=== PATIENT | female | born 1950 | race Caucasian/White ===

== ENCOUNTER → 2017-01-02 | Outpatient (CLI) | payer MEDICARE, OTHER ==
--- NOTE | 2017-01-02 12:00 | CT ---
EXAMINATION TYPE: CT lumbar spine wo con DATE OF EXAM: 01/02/2017 COMPARISON: NONE HISTORY: pain with bilateral sciatica CT DLP: 604.1 mGycm CONTRAST: None TECHNIQUE: CT of the lumbar spine is performed on a spiral scan at 3 mm thick sections. Reconstructed images are performed in the coronal and sagittal planes. FINDINGS: Vascular calcification is within the aorta. Renal calcifications noted on the left. T12-L1: No focal disc herniation or significant disc bulge is evident. No spinal canal stenosis or neural foraminal stenosis is present. L1-L2: No focal disc herniation or significant disc bulge is evident. No spinal canal stenosis or n eural foraminal stenosis is present L2-L3: No focal disc herniation or significant disc bulge is evident. No spinal canal stenosis or n eural foraminal stenosis is present L3-L4: Mild disc bulging is anterior thecal sac contact. No spinal canal stenosis or neural foraminal stenosis is present. L4-L5: Mild disc bulging is anterior thecal sac contact. Mild facet hypertrophy is present. No AP spi nal canal stenosis present. Neural foramen are patent. L5-S1: Mild disc bulge and facet hypertrophy is contributing to mild canal narrowing. No stenosis is present. Neural foramen are patent. Vertebral alignment appears normal. IMPRESSION: 1. Minimal disc bulge at L3-4 through L5-S1 with anterior thecal sac contact. 2. Facet hypertrophy greatest at L5-S1. This may be contributing to minimal canal narrowing without s tenosis at L5-S1.
== END | disposition home or self-care (01) ==
LOC: RADCTMAIN 09:08
PROVIDERS: ATTEND Family Medicine
DX: M51.17 Intervertebral disc disorders with radiculopathy, lumbosacral region (principal); M46.1 Sacroiliitis, not elsewhere classified
CPT/HCPCS: 72131

== ENCOUNTER → 2017-01-21 | Outpatient (CLI) | payer MEDICARE, OTHER ==
[~2017-01-21] MED LIST: REGADENOSON 0.4 MG/5 ML SYRINGE IV ONE
--- NOTE | 2017-01-21 11:44 | NM ---
EXAMINATION TYPE: NM stress lexiscan cardiolite DATE OF EXAM: 01/21/2017 COMPARISON: 11/24/2014 HISTORY: Abnormal EKG TECHNIQUE: After the intravenous administration of 10.7 mCi Tc 99m Sestamibi - Cardiolite resting SP ECT images acquired 45 minutes post injection. The patient received 0.4mg Lexiscan, 27.2 mCi Tc 99m Sestamibi - Stress images obtained [address] injection FINDINGS: Review of stress and rest SPECT images demonstrates tiny suspicious for small area of reversibility i nvolving the apical lateral myocardium.. Gated analysis shows normal wall motion with an estimated l eft ventricular ejection fraction of 68 %. IMPRESSION: Suspicious for small focal area of stress-induced reversible ischemia apical lateral myocardium. A Yellow message has been communicated to Jamar Dao DO via the [employer] system on 01/21/2017 11:42 AM, Message ID [id number].
--- NOTE | 2017-01-21 12:43 | EST ---
DATE OF SERVICE: 01/21/2017 AGE: 66Y SEX: F HT: 61" WT: 174 lbs. Protocol Neto: Other: Lexiscan Cardiolite Stage: Dur. of Exercise: *Heart Rate Blood Pressure *Rest: 68 Rest: 147/76 * *Max. Achieved: 104 Maximum BP: 163/64 85% PMHR: 130 100% PMHR: 153 *METS: INDICATIONS: Pre-op, abnormal EKG. MEDICATIONS: Crestor, Plavix, verapamil. Patient was given Lexiscan injection over a period of 15 seconds. The peak heart rate of 104 was achieved. Maximum blood pressure of 163/64 mmHg was noted. Resting EKG shows normal sinus rhythm with QRS morphology suggestive of right bundle branch block pattern was noted. No ST segment depression suggestive of ischemia is noted. The results of the nuclear study will follow.
== END | disposition home or self-care (01) ==
LOC: RADNMMAIN 08:56
PROVIDERS: ATTEND Family Medicine
DX: Z01.818 Encounter for other preprocedural examination (principal); I25.10 Atherosclerotic heart disease of native coronary artery without angina pectoris; I10 Essential (primary) hypertension
CPT/HCPCS: 93017; 78452; A9500; J2785

== ENCOUNTER → 2018-04-18 | Outpatient (CLI) | payer MEDICARE, OTHER ==
--- NOTE | 2018-04-18 15:49 | US ---
EXAMINATION TYPE: US carotid duplex BILAT DATE OF EXAM: 04/18/2018 COMPARISON: US 2013 CLINICAL HISTORY: [id number] PERIPHERRAL VASCULAR DZ,[id number] NICOTINE DEPENDANCE. EXAM MEASUREMENTS: RIGHT: Peak Systolic Velocity (PSV) cm/sec ----- Right CCA: 64.5 ----- Right ICA: 106.4 ----- Right ECA: 78.2 ICA/CCA ratio: 1.7 RIGHT: End Diastole cm/sec ----- Right CCA: 18.1 ----- Right ICA: 33.5 ----- Right ECA: 14.3 LEFT: Peak Systolic Velocity (PSV) cm/sec ----- Left CCA: 71.8 ----- Left ICA: 81.0 ----- Left ECA: 91.9 ICA/CCA ratio: 1.1 LEFT: End Diastole cm/sec ----- Left CCA: 21.0 ----- Left ICA: 32.7 ----- Left ECA: 21.1 VERTEBRALS (direction of flow): Right Vertebral: Antegrade Left Vertebral: Antegrade Rhythm: Normal Bilateral intimal thickening, plaque bilateral bulb, no elevated velocities, no significant stenosis. IMPRESSION: Atheromatous plaquing and intimal thickening without significant flow-limiting stenosis. Criteria for Assigning % of Stenosis / Diameter reduction (Estimation based on the indirect measurements of the internal carotid artery velocities (ICA PSV). 1. Normal (no stenosis)=ICA PSV < 125 cm/s: ratio < 2.0: ICA EDV<40 cm/s. 2. Less than 50% stenosis=ICA PSV < 125 cm/s: ratio < 2.0: ICA EDV<40 cm/s. 3. 50 to 69% stenosis=ICA PSV of 125 to 230 cm/s: ration 2.0 ? 4.0: ICA EDV 40-100 cm/s. 4. Greater than 70% stenosis to near occlusion= ICA PSV > 230 cm/s: ratio > 4.0: ICA EDV > 100 cm/s. 5. Near occlusion= ICA PSV velocities may be low or undetectable: variable ratio and ICA EDV. 6. Total occlusion=unable to detect flow.
--- NOTE | 2018-04-22 09:39 | P.ARTDOP ---
Arterial Doppler LOWER EXTREMITY ARTERIAL DOPPLER: DATE OF SERVICE: 04/18/2018 Reason for study: Status post aortic stent. Doppler waveforms: Multiphasic bilaterally throughout. Pulse volume recording: Normal configuration. Pressure gradients: Very mild proximal gradients. Ankle-brachial indices: 0.96 on the right and 0.99 on the left.. Toe pressures: 99 on the right, 122 on the left Impression: Essentially normal arterial Doppler.
== END | disposition home or self-care (01) ==
LOC: RADUSWWP 13:03
PROVIDERS: ATTEND Family Medicine
DX: I65.23 Occlusion and stenosis of bilateral carotid arteries (principal); I25.10 Atherosclerotic heart disease of native coronary artery without angina pectoris; I10 Essential (primary) hypertension; F17.200 Nicotine dependence, unspecified, uncomplicated
CPT/HCPCS: 93880; 93923

== ENCOUNTER → 2018-05-28 | Outpatient (CLI) | payer MEDICARE, OTHER ==
--- NOTE | 2018-05-28 16:53 | BD ---
EXAMINATION TYPE: Axial Bone Density DATE OF EXAM: 05/28/2018 COMPARISON: 2007 CLINICAL HISTORY: disorder of bone, M 85.80 Height: 5'1 Weight: 173 FRAX RISK QUESTIONS: Secondary Osteoporosis: RISK FACTORS HISTORY OF: Family History of Osteoporosis: y Diet low in dairy products/other sources of calcium: y Postmenopausal woman: y MEDICATIONS: Additional Medications: plavix,crestor, blood pressure, stomach, flexa Additional History: EXAM MEASUREMENTS: Bone mineral densitometry was performed using the [employer] System. Bone mineral density as measured about the Lumbar spine is: ----- L1-L4(G/cm2): 1.089 T Score Values are as follows: ----- L2: -0.6 ----- L3: -0.3 ----- L4: -1.6 ----- L1-L4: -0.8 Bone mineral density about the R hip (g/cm2): 0.753 Bone mineral density about the L hip (g/cm2): 0.812 T Score values are as follows: -----R Neck: -2.1 -----L Neck: -1.6 -----R Total: -0.8 -----L Total: -0.8 IMPRESSION: Osteopenia (T Score between -2.5 and -1). There is slightly increased risk of fracture and the patient may be considered for treatment. Re-Screen 2-5 years. NOTE: T-SCORE=SD OF THE YOUNG ADULT MEAN.
--- NOTE | 2018-05-29 13:29 | MM ---
Reason for exam: screening (asymptomatic). Last mammogram was performed 1 year ago. History: Patient is postmenopausal. Family history of breast cancer in maternal cousin. Benign excisional biopsy of the left breast, 1989. Took estrogen for 21 years. Physical Findings: A clinical breast exam by your physician is recommended on an annual basis and results should be correlated with mammographic findings. MG 3D Screening Mammo W/Cad Bilateral CC and MLO view(s) were taken. Prior study comparison: May 27, 2017, bilateral MG 3d screening mammo w/cad. May 14, 2016, bilateral MG 3d screening mammo w/cad. There are scattered fibroglandular densities. There is no discrete abnormality. No significant changes when compared with prior studies. ASSESSMENT: Negative, BI-RAD 1 RECOMMENDATION: Routine screening mammogram of both breasts in 1 year.
== END | disposition home or self-care (01) ==
LOC: RADMAMWWP 13:48
PROVIDERS: ATTEND Family Medicine
DX: Z12.31 Encounter for screening mammogram for malignant neoplasm of breast (principal); M85.80 Other specified disorders of bone density and structure, unspecified site
CPT/HCPCS: 77063; 77067; 77080

== ENCOUNTER → 2018-12-10 | Outpatient (CLI) | payer MEDICARE, OTHER ==
--- NOTE | 2018-12-10 13:07 | CONS ---
CONSULTATION DATE OF SERVICE: 12/10/2018 A 68-year-old lady who has been in the sleep center for obstructive sleep apnea- hypopnea syndrome. HISTORY OF PRESENT ILLNESS/SLEEP-WAKE EVALUATION: Patient has been diagnosed with sleep apnea about 5 years ago by results of home sleep apnea test. Since that time she is on treatment with CPAP. Now she is using her second CPAP unit. She is using equipment every night for the whole night and 96% more than 4 hours per night. Her sleep schedule from around 10 p.m. to 7 a.m. Usually she is falling asleep pretty well, although has TV set in bedroom. She sleeps on the side position. While using her CPAP, according to her , she has episodes of awakenings from sleep and noises opening her mouth. Sometimes he wakes her up because of his concerns about her breathing. She wakes from sleep by herself around 5 to 6 times with occasional episodes of nocturia. [place] Sleepiness Scale is 3. Usually she does not take any naps during the day. PAST MEDICAL HISTORY: Positive for hypertension, abdominal aortic narrowing with stent insertion, hyperlipidemia, acid reflux with history of Moise esophagus. PAST SURGICAL HISTORY: Insertion of stent to aorta, tonsillectomy, uvulectomy, cholecystectomy, bilateral knee surgery for meniscus problems. SOCIAL HISTORY: Positive for smoking for about 10 years, less than 1 pack a day. Alcohol consumption none. MEDICATIONS: Crestor, Plavix, verapamil ER, Prevacid, Celexa, vitamin D. FAMILY HISTORY: Hypertension, heart problems, hyperlipidemia, sleep apnea, snoring, acid reflux, diabetes, nasal polyps, restless legs. PHYSICAL EXAMINATION: During physical exam, a lady without distress. VITAL SIGNS: BP 143/69, HR 82, RR 16, height 5 feet 1-1/2 inches, weight 178 pounds, body mass index 33.0, temperature 97.9, oxygen saturation at room air 96%. HEENT: PERRLA, EOMI. Oropharynx extremely low position of soft palate. Mallampati 4. Status post uvulectomy. Restriction of nasal breathing on the left side. NECK: 15-3/4 inches in circumference. LUNGS: Clear to percussion and to auscultation. Good air exchange. No wheezing or rhonchi. HEART: S1, S2 regular. No murmurs, gallops, or rubs. ABDOMEN: Obese. EXTREMITIES: No clubbing or cyanosis. PLANT AND EQUIPMENT WORKER: Awake, alert, and oriented X3. Cranial nerves 2 to 7 intact. There is no fasciculation or atrophy. noted. No focal deficits observed. IMPRESSION: 1. History of obstructive sleep apnea for 5 years. The patient continued to use her CPAP equipment every night for the whole night, but has multiple awakenings from sleep up to 6 times. According to her , she has episodes of stopped breathing during the sleep and noises. 2. Obesity, body mass index 33.0. 3. Hypertension. 4. Status post surgical treatment of stent insertion to abdominal aorta. 5. Hyperlipidemia. 6. Acid reflux with history of Moise esophagus. 7. Status post tonsillectomy and uvulectomy. 8. Status post cholecystectomy. 9. Status post bilateral knee surgery for meniscus problems. PLAN: 1. I will contact primary care physician office to get results of her previous home sleep apnea test which was done 5 years ago. 2. If results of test are unclear, we may consider to repeat polysomnogram. Also to check for possible periodic limb movements. 3. CPAP titration for evaluation of effective CPAP pressure at the present time and fitting patient with a mask. 4. Losing weight. 5. Sleep hygiene with regular time in bed for at least 7-1/2 hours. 6. No driving if feeling any sleepiness. Thank you very much for referring this patient for consultation. Sincerely, Bill Braga MD, PhD, FAASM Diplomat of [place] Board of Medical Specialties [place] Board of Internal Medicine Dental Equipment Mechanic of [facility] [place] MMODL / RUCHIN: [id number] /
== END ==
LOC: SLEEP 11:38
PROVIDERS: ATTEND Internal Medicine
DX: G47.33 Obstructive sleep apnea (adult) (pediatric) (principal); I10 Essential (primary) hypertension; E78.5 Hyperlipidemia, unspecified; K21.9 Gastro-esophageal reflux disease without esophagitis; K22.70 Barrett's esophagus without dysplasia; E66.9 Obesity, unspecified; Z90.49 Acquired absence of other specified parts of digestive tract; Z87.891 Personal history of nicotine dependence; Z79.899 Other long term (current) drug therapy; Z79.02 Long term (current) use of antithrombotics/antiplatelets; Z83.6 Family history of other diseases of the respiratory system; Z95.828 Presence of other vascular implants and grafts; Z68.33 Body mass index [BMI] 33.0-33.9, adult; Z99.89 Dependence on other enabling machines and devices; Z90.89 Acquired absence of other organs; Z98.890 Other specified postprocedural states
CPT/HCPCS: 99211

== ENCOUNTER → 2019-01-22 | Outpatient (CLI) | payer MEDICARE, OTHER ==
--- NOTE | 2019-01-22 16:20 | PN ---
PROGRESS NOTE DATE OF SERVICE: 01/22/2019 This patient is a 68-year-old lady who has been followed in Sleep Center for treatment of obstructive sleep apnea-hypopnea syndrome. Recently she had CPAP titration; for the whole night of titration her apnea-hypopnea index was only 0.5, with the highest pressure of 10. At that level, apnea-hypopnea index was 1.0 with oxygen level above 88%, which is totally normal. Actually with lower pressure, the patient also breathes well. The patient is using her CPAP equipment every night for the whole night. I checked her CPAP unit. Usage is 30/30 nights for more than 4 hours. Average usage is 7.6 hours. Pressure is 10 cm of water. Leak is 5 L/minute, which is very minimal. Apnea-hypopnea index is 2.6, which is absolutely normal. The patient does not have problems related to the pressure. [place] Sleepiness Scale today is 4, which is absolutely normal. MEDICATIONS: 1. Crestor. 2. Plavix. 3. Verapamil. 4. Prevacid. 5. Vitamin D. PHYSICAL EXAMINATION: GENERAL: A pleasant patient in no distress. VITAL SIGNS: BP 150/74, HR 76, RR 14, weight 179.8, temperature 98.3, oxygen saturation at room air 95%. HEENT: PERRLA, EOMI. Evaluation of oropharynx showed tongue protrudes midline. Extremely low position of soft palate. Mallampati IV. NECK: Supple. No JVD. Thyroid is not palpable. LUNGS: Clear to percussion and to auscultation. Good air exchange. No wheezing or rhonchi. HEART: S1, S2 regular. No murmurs, gallops or rubs. ABDOMEN: Slightly obese. EXTREMITIES: No clubbing or cyanosis. PROFESSOR/NURSE ANESTHETIST: Awake, alert, and oriented X3. Cranial nerves 2 to 7 intact. There is no fasciculation or atrophy. noted. No focal deficits observed. IMPRESSION: 1. Obstructive sleep apnea-hypopnea syndrome. Patient demonstrated 100% compliance with treatment, benefitting from treatment. 2. Hypertension. 3. Obesity. 4. Hyperlipidemia. 5. Status post surgical treatment and stent insertion to abdominal aorta. 6. Acid reflux with history of Moise's esophagus. 7. Status post tonsillectomy and uvulectomy. 8. Status post cholecystectomy. 9. Status post bilateral knee surgery for meniscus problems. PLAN: 1. Patient will continue to use CPAP equipment with the same regimen every night for the whole night. 2. Watching and losing weight. 3. Sleep hygiene with regular time in bed for at least 8 hours. 4. No driving if feeling any sleepiness. 5. We will maintain all necessary prescriptions for the mask, heated tube and filters. Thank you very much for allowing me to participate in the management of your patient. Sincerely, Bill Braga MD, PhD, FAASM Diplomat of [place] [employer] Specialties [place] [employer] of [employer] Medicine Hosiery Operator of [facility] [place] MMODL / IJN: [id number] /
== END | disposition home or self-care (01) ==
LOC: SLEEP 13:09
PROVIDERS: ATTEND Internal Medicine
DX: G47.33 Obstructive sleep apnea (adult) (pediatric) (principal); I10 Essential (primary) hypertension; E78.5 Hyperlipidemia, unspecified; K21.9 Gastro-esophageal reflux disease without esophagitis; E66.9 Obesity, unspecified; K22.70 Barrett's esophagus without dysplasia; Z98.890 Other specified postprocedural states; Z90.49 Acquired absence of other specified parts of digestive tract; Z79.899 Other long term (current) drug therapy; Z99.89 Dependence on other enabling machines and devices; Z90.89 Acquired absence of other organs; Z95.5 Presence of coronary angioplasty implant and graft; Z79.02 Long term (current) use of antithrombotics/antiplatelets

== ENCOUNTER → 2020-02-16 | Outpatient (CLI) | payer MEDICARE, OTHER ==
--- NOTE | 2020-02-17 11:21 | MM ---
Reason for exam: screening (asymptomatic). Last mammogram was performed 1 year and 9 months ago. History: Patient is postmenopausal. Family history of breast cancer in maternal cousin. Benign excisional biopsy of the left breast, 1989. Took estrogen for 21 years. Physical Findings: A clinical breast exam by your physician is recommended on an annual basis and results should be correlated with mammographic findings. MG 3D Screening Mammo W/Cad Bilateral CC and MLO view(s) were taken. Prior study comparison: May 28, 2018, bilateral MG 3d screening mammo w/cad. May 27, 2017, bilateral MG 3d screening mammo w/cad. There are scattered fibroglandular densities. Stable benign calcifications. There is no discrete abnormality. No significant changes when compared with prior studies. ASSESSMENT: Benign, BI-RAD 2 RECOMMENDATION: Routine screening mammogram of both breasts in 1 year.
== END | disposition home or self-care (01) ==
LOC: RADMAMWWP 11:15
PROVIDERS: ATTEND Family Medicine
DX: Z12.31 Encounter for screening mammogram for malignant neoplasm of breast (principal)
CPT/HCPCS: 77063; 77067

== ENCOUNTER → 2020-05-31 | Outpatient (CLI) | payer MEDICARE, OTHER ==
--- NOTE | 2020-05-31 09:26 | XR ---
Left foot and left ankle Limited HISTORY: Pain, broken toe 3 weeks prior Frontal and lateral views of the left foot and left ankle are submitted. No comparisons. There is a plantar calcaneal spur. Bone mineralization, joint spaces and alignment are maintained wit hin the left ankle. There is an oblique fracture through the proximal phalanx of the fifth digit of t he left foot with minimal displacement. No evident periosteal new bone formation. Bone mineralization is reduced. There is a sclerotic focus in the proximal second metatarsal which may represent bone is land. IMPRESSION: Fifth digit fracture. Additional findings above.
== END | disposition home or self-care (01) ==
LOC: RADXRYALE 08:47
PROVIDERS: ATTEND Family Medicine
DX: S92.352A Displaced fracture of fifth metatarsal bone, left foot, initial encounter for closed fracture (principal); M77.32 Calcaneal spur, left foot; S92.515D Nondisplaced fracture of proximal phalanx of left lesser toe(s), subsequent encounter for fracture with routine healing; M25.572 Pain in left ankle and joints of left foot

== ENCOUNTER 2020-10-12 08:31 | Day surgery (SDC) | payer MEDICARE, OTHER ==
[2020-10-06 12:01] VITALS: BMI 29.8
[~2020-10-12 08:31] MED LIST changes: +LACTATED RINGERS 1,000 ML IV SCH; +LIDOCAINE 1% (10MG/ML) FOR IV START INTRADERMA PRN; +MOXIFLOXACIN HCL 0.5% DROPS 3 ML BTL OP PRN; -REGADENOSON 0.4 MG/5 ML SYRINGE IV ONE; +TETRACAINE 0.5% OPHTH (PF) DROPS 4 ML BTL OP PRN; +TIMOLOL 0.5% OPHTH DROPS 5 ML BTL OP PRN
[2020-10-12] MEDS: CYCLOPENTOLATE 1% OPHTH SOLN 2 ML BTL OP PRN ×3 (08:49→09:06)
[2020-10-12] MEDS: PHENYLEPHRINE 2.5% OPHTH DRP 2ML OP PRN ×3 (08:51→09:11)
[2020-10-12 09:01] VITALS: TEMP 97.8
[2020-10-12 09:21] LABS: Glucose,Whole Blood 114 mg/dL (75-99)
[2020-10-12] MEDS ORDERED: MIDAZOLAM 2 MG/2 ML VIAL ONE (09:23)
[2020-10-12] MEDS ORDERED: fentaNYL (PF) 50 MCG/ML 2 ML AMP ONE (09:23)
[2020-10-12] MEDS ORDERED: BALANCED SALT IRRIG SOLN COMB2 15 ML IRRIG.SOLN IRRIGATION ONE (09:34)
[2020-10-12] MEDS ORDERED: LIDOCAINE 1% (PF) 10MG/ML VIAL MISCELLANE ONE (09:34)
[2020-10-12] MEDS ORDERED: DUOVISC KIT (GREEN BOX) INTRAOCULA ONE (09:34)
[2020-10-12] MEDS ORDERED: EPINEPHrine (PF) 0.3 ML in BALANCED SALT IRRIG SOLN COMB2 500 ML IRRIGATION ONE (09:35)
--- NOTE | 2020-10-12 09:52 | P.OP ---
Date of Procedure: 10/12/20 Preoperative Diagnosis: NS & CS Postoperative Diagnosis: same with astigmatism Procedure(s) Performed: PIOL< OS Implants: [id number] 20 x 5 Anesthesia: MAC Surgeon: Cristo Mendoza Pathology: none sent Condition: stable Disposition: same day Indications for Procedure: blurry vision Operative Findings: no complications
[2020-10-12 10:03] VITALS: PULSE 67; RESP 16
[2020-10-12 10:11] VITALS: BP 130/62
--- NOTE | 2020-10-12 22:04 | OP ---
OPERATIVE REPORT DATE OF SURGERY: 10/12/2020. PROCEDURE: Phacoemulsification of cataract and intraocular lens implant of the left eye. PREOPERATIVE DIAGNOSIS: Nuclear sclerosis, cortical sclerosis and regular astigmatism. POSTOPERATIVE DIAGNOSIS: Nuclear sclerosis, cortical sclerosis and regular astigmatism. SURGEON: Dr. Cristo Mendoza. ANESTHESIA: Topical. ESTIMATED BLOOD LOSS: None. SPECIMEN TAKEN: None. NARRATIVE: After obtaining the appropriate consent, the patient was brought to the operating room. There she was asked to sit upright and the axes of 0 and 180 degrees were identified and marked with a gentian ken marker. She was then placed in the proper supine position under cardiac monitoring, then prepped and draped in the usual sterile manner. She was approached from her left temporal side, and using previously acquired corneal topography information, the axis of 83 degrees was identified and marked with a real trends axis marker. At the 5 o'clock position an MVR blade was used to create a paracentesis port. Through this opening 1% xylocaine MPF 50:50 mix of balanced salt solution was injected into the anterior chamber. This was followed by stabilization of the anterior chamber with Viscoat. At the 3 o'clock position, a 2.5 mm keratome was used to create a self-sealing corneal flap incision. Through this opening a cystotome was introduced to begin a continuous tear capsulorrhexis which was then completed using the Utrata forceps. Hydrodissection and hydrodelineation of the lens was accomplished with balanced salt solution. Phacoemulsification of the lens utilizing phaco chop was accomplished in 22.08 seconds at 21% power. Additional xylocaine MPF was instilled into the anterior chamber. This was followed by removal of the remaining cortex under irrigation and aspiration as well as careful polishing of the posterior capsule in the capsule vacuum mode. Provisc was then used to stabilize the capsular bag, and a Bausch and Lomb enVista model MX60T 20 diopter spherical equivalent by 5 diopter cylinder correction lens was inserted into the capsular bag without difficulty. The remaining viscoelastic was removed from in and around the intraocular lens, and the lens was then aligned with the 83-degree ashleigh which was placed on the patient's cornea. The lens was slightly tamponaded to ensure stability and the eye was then brought to normal intraocular pressures through the paracentesis port. The wounds were confirmed watertight. She then received 2 drops of 0.5% timolol followed by 2 drops of moxifloxacin, was then lightly patched and shielded in the usual manner. There were no complications from the procedure. She tolerated the procedure well and was returned to [facility] in good condition. LAW / JOSEFINA: [id number] /
== END 2020-10-12 10:40 | disposition home or self-care (01) ==
LOC: OR 08:31
PROVIDERS: ATTEND Ophthalmology
DX: H25.812 Combined forms of age-related cataract, left eye (principal); H52.223 Regular astigmatism, bilateral; H25.11 Age-related nuclear cataract, right eye; H52.13 Myopia, bilateral; E11.36 Type 2 diabetes mellitus with diabetic cataract; I11.9 Hypertensive heart disease without heart failure; I71.9 Aortic aneurysm of unspecified site, without rupture; E66.9 Obesity, unspecified; G47.33 Obstructive sleep apnea (adult) (pediatric); K21.9 Gastro-esophageal reflux disease without esophagitis; E78.5 Hyperlipidemia, unspecified; I73.9 Peripheral vascular disease, unspecified; F32.9 Major depressive disorder, single episode, unspecified; Z88.1 Allergy status to other antibiotic agents; Z98.890 Other specified postprocedural states; Z95.828 Presence of other vascular implants and grafts; Z90.49 Acquired absence of other specified parts of digestive tract; Z90.710 Acquired absence of both cervix and uterus; Z90.89 Acquired absence of other organs; Z79.899 Other long term (current) drug therapy; Z79.02 Long term (current) use of antithrombotics/antiplatelets; Z97.3 Presence of spectacles and contact lenses; Z68.30 Body mass index [BMI] 30.0-30.9, adult; Z83.518 Family history of other specified eye disorder; Z82.61 Family history of arthritis; Z83.3 Family history of diabetes mellitus; Z82.49 Family history of ischemic heart disease and other diseases of the circulatory system
CPT/HCPCS: 66984; C1780; J2250; J0171; J3010; J2001

== ENCOUNTER 2020-10-26 06:24 | Day surgery (SDC) | payer MEDICARE, OTHER ==
[~2020-10-26 06:24] MED LIST changes: -LACTATED RINGERS 1,000 ML IV SCH; -LIDOCAINE 1% (10MG/ML) FOR IV START INTRADERMA PRN; -MOXIFLOXACIN HCL 0.5% DROPS 3 ML BTL OP PRN; -TIMOLOL 0.5% OPHTH DROPS 5 ML BTL OP PRN
[2020-10-26] MEDS: PHENYLEPHRINE 2.5% OPHTH DRP 2ML OP PRN ×3 (06:48→07:00)
[2020-10-26] MEDS: CYCLOPENTOLATE 1% OPHTH SOLN 2 ML BTL OP PRN ×3 (06:51→07:03)
[2020-10-26 06:56] VITALS: TEMP 98.4
[2020-10-26] MEDS: LACTATED RINGERS 1,000 ML IV SCH ×2 (07:07→07:29)
[2020-10-26 07:09] LABS: Glucose,Whole Blood 142 mg/dL (75-99)
[2020-10-26] MEDS ORDERED: fentaNYL (PF) 50 MCG/ML 2 ML AMP ONE (07:25)
[2020-10-26] MEDS ORDERED: MIDAZOLAM 2 MG/2 ML VIAL ONE (07:25)
[2020-10-26] MEDS ORDERED: BALANCED SALT IRRIG SOLN COMB2 15 ML IRRIG.SOLN IRRIGATION ONE ×2 (07:37→07:43)
[2020-10-26] MEDS ORDERED: HYALURONATE SODIUM INTRAOCULAR 1 EACH SYRINGE (12MG/ML) INTRAOCULA ONE ×2 (07:37→07:42)
[2020-10-26] MEDS ORDERED: LIDOCAINE 1% (PF) 10MG/ML VIAL MISCELLANE ONE ×2 (07:37→07:43)
[2020-10-26] MEDS: TIMOLOL 0.5% OPHTH DROPS 5 ML BTL OP PRN ×2 (07:39→07:51)
[2020-10-26] MEDS: MOXIFLOXACIN HCL 0.5% DROPS 3 ML BTL OP PRN ×2 (07:39→07:51)
[2020-10-26] MEDS ORDERED: EPINEPHrine (PF) 0.3 ML in BALANCED SALT IRRIG SOLN COMB2 500 ML IRRIGATION ONE (07:43)
--- NOTE | 2020-10-26 07:57 | P.OP ---
Date of Procedure: 10/26/20 Preoperative Diagnosis: NS & CS & reg astigmatism Postoperative Diagnosis: same Procedure(s) Performed: PIOL, OD Implants: [id number] 20.50x 5.75 Anesthesia: MAC Surgeon: Cristo Mendoza Pathology: none sent Condition: stable Disposition: same day Indications for Procedure: blurry vision Operative Findings: no complications
[2020-10-26 08:02] VITALS: RESP 16
[2020-10-26 08:18] VITALS: BP 111/67; PULSE 70
--- NOTE | 2020-10-26 22:14 | OP ---
OPERATIVE REPORT DATE OF SURGERY: 10/26/2020. PROCEDURE: Phacoemulsification of cataract and intraocular lens implant of the right eye. PREOPERATIVE DIAGNOSES: Nuclear sclerosis, cortical sclerosis and regular astigmatism. POSTOPERATIVE DIAGNOSES: Nuclear sclerosis, cortical sclerosis and regular astigmatism. SURGEONS: Dr. Cristo Mendoza. ANESTHESIA: Topical. ESTIMATED BLOOD LOSS: None. SPECIMEN TAKEN: None. NARRATIVE: After obtaining the appropriate consent, the patient was brought to the operating room. There she was asked to sit upright, and the axes of 0 and 180 degrees were identified and marked with a gentian ken marker. She was then laid in the proper supine position under cardiac monitoring and then prepped and draped in the usual sterile manner. She was approached from her right temporal side. Using previously acquired corneal topography information, the axis of 100 degrees was identified and marked using a [employer] axis marker. At the 11 o'clock position an MVR blade was used to create a paracentesis port. Through this opening 1% xylocaine MPF 50:50 mix with balanced salt solution was injected into the anterior chamber. This was followed by instillation of Amvisc to stabilize the anterior chamber. At the 9 o'clock position, a 2.5 mm keratome was used to create a self-sealing corneal flap incision. Through this opening a cystotome was introduced to begin a continuous tear capsulorrhexis which was then completed using the Utrata forceps. Hydrodissection and hydrodelineation of the lens were accomplished with balanced salt solution. Phacoemulsification of the lens utilizing phaco chop was accomplished in 21.37 seconds at 21% power. Additional xylocaine MPF was instilled into the anterior chamber. This was then followed by removal of the remaining cortex under irrigation and aspiration along with careful polishing of the posterior capsule in the capsule vacuum mode. Amvisc was then used to stabilize the capsular bag, and a Bausch and Lomb MX 60ET 20.5-diopter x 5.75-diopter posterior chamber intraocular lens was inserted into the capsular bag without difficulty. The remaining viscoelastic was removed from in and around the intraocular lens and the lens was rotated so that its alignment villarreal aligned with the 100-degree axis placed on the patient's cornea earlier in the case. The eye was then brought to normal intraocular pressure through the paracentesis port with balanced salt solution and the wounds were confirmed watertight. She then received 2 drops of 0.5% timolol followed by 2 drops of moxifloxacin, was then lightly patched and shielded in the usual manner. There were no complications from the procedure. She tolerated the procedure well and was returned to [facility]patient [facility] in good condition. LAW / JOSEFINA: [id number] /
== END 2020-10-26 08:42 | disposition home or self-care (01) ==
LOC: OR 06:24
PROVIDERS: ATTEND Ophthalmology
DX: H25.11 Age-related nuclear cataract, right eye (principal); E11.36 Type 2 diabetes mellitus with diabetic cataract; H26.9 Unspecified cataract; H52.223 Regular astigmatism, bilateral; H52.13 Myopia, bilateral; Z98.42 Cataract extraction status, left eye; Z96.1 Presence of intraocular lens; I10 Essential (primary) hypertension; E78.5 Hyperlipidemia, unspecified; K21.9 Gastro-esophageal reflux disease without esophagitis; F17.210 Nicotine dependence, cigarettes, uncomplicated; Z90.49 Acquired absence of other specified parts of digestive tract; Z90.710 Acquired absence of both cervix and uterus; Z90.89 Acquired absence of other organs; Z95.828 Presence of other vascular implants and grafts; Z82.61 Family history of arthritis; Z83.3 Family history of diabetes mellitus; Z82.49 Family history of ischemic heart disease and other diseases of the circulatory system; Z83.518 Family history of other specified eye disorder; Z97.3 Presence of spectacles and contact lenses; Z79.02 Long term (current) use of antithrombotics/antiplatelets; Z79.899 Other long term (current) drug therapy
CPT/HCPCS: 66984; V2787; C1780; J2250; J0171; J3010; J2001

== ENCOUNTER → 2020-11-29 | Outpatient (CLI) | payer MEDICARE, OTHER ==
--- NOTE | 2020-11-29 13:44 | EST ---
EXERCISE STRESS AGE: 70 SEX: Female HT: 5'1" WT: 159 lbs. PROTOCOL: Neto STAGE: 1 DURATION OF EXERCISE: 4 minutes HEART RATE REST: 74 BLOOD PRESSURE REST: 160/79 MAXIMUM HEART RATE ACHIEVED: 137 MAXIMUM BLOOD PRESSURE: 208/59 85% MPHR: 127 100% MPHR: 149 METS: 5.8 INDICATIONS: Mixed hyperlipidemia, hypertension CLINICAL INFORMATION: Baseline rhythm is sinus mechanism, rate of 74, right bundle branch block. Baseline blood pressure 160/79 mmHg. Patient exercised on Neto protocol for 4 minutes reaching peak rate 137 beats per minute which is equal to 92% of maximum predicted heart rate. Peak blood pressure 208/59 mmHg. The test was terminated secondary to fatigue. There was no chest pain. Electrocardiograph monitoring revealed no evidence of diagnostic ischemic ST deviation. Rare PVCs were noted. CONCLUSION: 1. Poor exercise tolerance. 2. Rare PVCs. 3. Nondiagnostic electrocardiograph stress testing secondary to baseline EKG abnormality. 4. If clinically indicated, an imaging stress test will be helpful. MMODL / IJN: [id number] /
== END | disposition home or self-care (01) ==
LOC: RADNMMAIN 08:38
PROVIDERS: ATTEND Family Medicine
DX: R94.31 Abnormal electrocardiogram [ECG] [EKG] (principal); I25.10 Atherosclerotic heart disease of native coronary artery without angina pectoris; E11.9 Type 2 diabetes mellitus without complications; I73.9 Peripheral vascular disease, unspecified
CPT/HCPCS: 93017; 93270

== ENCOUNTER → 2020-12-27 | Outpatient (CLI) | payer MEDICARE, OTHER ==
[2020-12-27 14:34] LABS: HCT 38.4 % (34.0-46.0); HGB 13.2 gm/dL (11.4-16.0); MCH 30.4 pg (25.0-35.0); MCHC 34.4 g/dL (31.0-37.0); MCV 88.3 fL (80.0-100.0); Mean Platelet Volume 9.8; Platelet Count 154 k/uL (150-450); RBC 4.34 m/uL (3.80-5.40); RDW 13.8 % (11.5-15.5); WBC 6.5 k/uL (3.8-10.6)
[2020-12-27 14:52] LABS: Potassium 3.8 mmol/L (3.5-5.1)
== END | disposition home or self-care (01) ==
LOC: LABPAT 12:11
PROVIDERS: ATTEND Internal Medicine
DX: Z01.812 Encounter for preprocedural laboratory examination (principal); R06.02 Shortness of breath
CPT/HCPCS: 36415; 80051; 82565; 84520; 85027

== ENCOUNTER 2020-12-30 10:48 | Day surgery (SDC) | payer MEDICARE, OTHER ==
[2020-12-28 11:22] VITALS: BMI 28.7
[~2020-12-30 10:48] MED LIST changes: +ALPRAZolam 0.25 MG TAB PO PRN; +ALPRAZolam 0.5 MG TAB PO PRN; +ASPIRIN 325 MG TAB PO ONE; +ATORVASTATIN 80 MG TAB PO ONE; +NITROGLYCERIN SL TABS 0.4 MG TAB SUBLINGUAL PRN; +SODIUM CHLORIDE 0.9% 1,000 ML in EMPTY BAG 1 BAG IV ONE; -TETRACAINE 0.5% OPHTH (PF) DROPS 4 ML BTL OP PRN
[2020-12-30 11:19] LABS: Glucose,Whole Blood 115 mg/dL (75-99)
[2020-12-30] MEDS ORDERED: LIDOCAINE 1% INJ 10MG/ML (20 ML MDV) ONE (12:10)
[2020-12-30] MEDS ORDERED: HEPARIN SODIUM 1,000 UN/ML (10ML VL) ONE (12:10)
[2020-12-30] MEDS ORDERED: VERAPAMIL 2.5 MG/ML 2 ML AMP ONE (12:10)
[2020-12-30] MEDS ORDERED: fentaNYL (PF) 50 MCG/ML 2 ML AMP ONE (12:10)
[2020-12-30] MEDS ORDERED: MIDAZOLAM 2 MG/2 ML VIAL IV ONE (12:20)
[2020-12-30] MEDS ORDERED: fentaNYL (PF) 50 MCG/ML 2 ML AMP IV ONE (12:20)
[2020-12-30] MEDS ORDERED: LIDOCAINE 1% INJ 10MG/ML (20 ML MDV) SQ ONE (12:21)
[2020-12-30] MEDS ORDERED: VERAPAMIL SYRINGE (5 MG/10 ML) INTRAARTER ONE (12:23)
[2020-12-30] MEDS ORDERED: HEPARIN SODIUM 1,000 UN/ML (10ML VL) IV ONE (12:23)
[2020-12-30] MEDS ORDERED: NITROGLYCERIN 1000MCG/10ML SYRINGE INTRACORON ONE (12:29)
[2020-12-30] MEDS ORDERED: IOPAMIDOL-370 125ML BTL INJ ONE (12:52)
[2020-12-30] MEDS ORDERED: RX INFO: IV CONTRAST WAS GIVEN 1 EACH MISC MISCELLANE PRN (13:16)
--- NOTE | 2020-12-30 13:16 | P.CARDCATH ---
Description of Procedure: PROCEDURES PERFORMED: Left heart catheterization, bilateral coronary angiography, iFR RCA, intracoronary nitroglycerin INDICATION: indeterminate stress test, GALEAS concerning for angina HISTORY: Patient is a pleasant 70-year-old female with history of tobacco abuse, hypertension, hyperlipidemia and PAD who has been experiencing increased palpitations, dyspnea on exertion. Patient states over last 2-3 months she has been unable to do much activity without becoming winded and feeling like her heart is racing. She underwent a stress EKG which was nondiagnostic secondary to baseline EKG abnormalities however had poor exercise tolerance without being able to exercise for more than 4 minutes. Therefore heart catheterization was recommended. CONSENT:I have discussed the risks, benefits and alternative therapies for the above-mentioned procedure and for both sedation/analgesia as well as necessary blood product administration, if indicated, as they pertain to this patient. The patient has indicated understanding and acceptance of the risks and procedures discussed. PROCEDURE: After the risks, benefits and alternatives of the above mentioned procedure explained in detail with the patient, informed consent was obtained. Patient was taken to the catheterization lab and prepped and draped in usual fashion. 1% lidocaine was used to anesthetize the right radial artery. A 6- Georgian sheath was placed in the right radial artery using modified Seldinger technique. Left coronary angiography was performed with a 5-Georgian FL3.5 catheter and right coronary angiography was performed with a 6-Georgian FR5 catheter in various views. The FR5 was inserted into the left ventricle and pressure measurements were obtained. There was some spasm of the proximal RCA and dampening of the waveform when the 6Fr FR5 was engaged and therefore intracoronary nitro was given with some improvement. There still appeared to be a 50% proximal RCA lesion and therefore the decision was made to perform iFR. A 6Fr FR5 guide catheter was used to engage the RCA. A 0.014 pressure wire was advanced into the aorta and normalized. It was then placed into the mid to distal RCA 1 cm past the mid lesion. iFR was 0.94. The wire and catheter were removed. The right radial sheath was removed and a TR band was placed with hemostasis achieved. The patient tolerated the procedure well. Patient was transported back to the post catheterization holding area in stable condition. Conscious Sedation: Patient was monitored under the direct supervision of vision of myself for conscious sedation using Versed and fentanyl for a total duration of 28 minutes HEMODYNAMICS: Ao:143/78 LV: 143/3, LVEDP 18 mmHg SELECTIVE CORONARY ARTERIOGRAPHY: LEFT MAIN: The left main is a large caliber vessel which bifurcates into the LAD and circumflex. There is no significant stenosis. LEFT ANTERIOR DESCENDING CORONARY ARTERY: LAD is a large caliber vessel which wraps around to the apex. There are mild luminal irregularities. LEFT CIRCUMFLEX CORONARY ARTERY: Left circumflex is a moderate to large caliber vessel which has mild luminal irregularities with a 30% mid cirumflex stenosis. RIGHT CORONARY ARTERY: The right coronary artery is a moderate caliber vessel which gives off PDA and PLV and is the dominant vessel. There is a proximal 50% stenosis and a mid 40% stenosis. iFR of both was normal at 0.94. FINAL IMPRESSION: 1. Mild to moderate CAD as described above including 50% RCA (iFR normal at 0.94) and mild disease of the left system. 2. Mildly elevated left sided filling pressure PLAN: 1. Aggressive risk factor modification per most recent ACC/AHA guidelines. 2. Followup in office in 1-2 weeks
[2020-12-30 14:14] VITALS: RESP 16
[2020-12-30 15:02] VITALS: BP 147/77; PULSE 72
== END 2020-12-30 16:38 | disposition home or self-care (01) ==
LOC: CATHCVL 10:48
PROVIDERS: ATTEND Internal Medicine
DX: I25.10 Atherosclerotic heart disease of native coronary artery without angina pectoris (principal); E78.5 Hyperlipidemia, unspecified; E11.51 Type 2 diabetes mellitus with diabetic peripheral angiopathy without gangrene; I10 Essential (primary) hypertension; I70.219 Atherosclerosis of native arteries of extremities with intermittent claudication, unspecified extremity; I45.10 Unspecified right bundle-branch block; F17.210 Nicotine dependence, cigarettes, uncomplicated; Z95.828 Presence of other vascular implants and grafts; Z82.49 Family history of ischemic heart disease and other diseases of the circulatory system; Z79.899 Other long term (current) drug therapy; Z79.01 Long term (current) use of anticoagulants; Z88.1 Allergy status to other antibiotic agents; Z88.8 Allergy status to other drugs, medicaments and biological substances
CPT/HCPCS: 93571; 93458; 87635; C1894; C1887; J2250; J2001; J3010; J1644; Q9967

== ENCOUNTER → 2021-05-25 | Outpatient (CLI) | payer MEDICARE, OTHER ==
--- NOTE | 2021-05-26 13:47 | MM ---
Reason for exam: screening (asymptomatic). Last mammogram was performed 1 year and 3 months ago. History: Patient is postmenopausal. Family history of breast cancer in maternal cousin. Benign excisional biopsy of the left breast, 1989. Took hormonal contraceptives for 2 years. Took estrogen for 21 years. Physical Findings: A clinical breast exam by your physician is recommended on an annual basis and results should be correlated with mammographic findings. MG 3D Screening Mammo W/Cad Bilateral CC and MLO view(s) were taken. Prior study comparison: February 16, 2020, bilateral MG 3d screening mammo w/cad. May 28, 2018, bilateral MG 3d screening mammo w/cad. There are scattered fibroglandular densities. There is no discrete abnormality. No significant changes when compared with prior studies. ASSESSMENT: Negative, BI-RAD 1 RECOMMENDATION: Routine screening mammogram of both breasts in 1 year.
== END | disposition home or self-care (01) ==
LOC: RADMAMWWP 07:09
PROVIDERS: ATTEND Family Medicine
DX: Z12.31 Encounter for screening mammogram for malignant neoplasm of breast (principal)
CPT/HCPCS: 77063; 77067

== ENCOUNTER → 2022-11-22 | Outpatient (CLI) | payer MEDICARE, OTHER ==
--- NOTE | 2022-11-22 15:12 | CT ---
EXAMINATION TYPE: CT abdomen pelvis wo con CT DLP: 813 mGycm, Automated exposure control for dose reduction was used. DATE OF EXAM: 11/22/2022 3:06 PM COMPARISON: None. CLINICAL INDICATION:Female, 72 years old with history of K21.00 gastr reflux R10.811 RUQ pain; right sided abdominal pain/flank pain TECHNIQUE: Axial CT of the abdomen and pelvis. Sagittal and coronal reformats were created on a [employer] workstation. Contrast used: None Oral contrast used: with Oral Contrast FINDINGS: LOWER CHEST: Moderate coronary artery calcified lesions and aortic valve leaflet calcifications. ABDOMEN LIVER: Unremarkable GALLBLADDER AND BILE DUCTS: Unremarkable. PANCREAS: Unremarkable. SPLEEN: Unremarkable. ADRENAL GLANDS: Unremarkable. KIDNEYS AND URETERS: 3 mm bilateral nonobstructing renal calculi. There is no evidence of obstructive uropathy. PELVIS BLADDER: Incompletely distended. No gross abnormality. REPRODUCTIVE: Unremarkable. ABDOMEN & PELVIS STOMACH AND BOWEL: No evidence of bowel obstruction. Scattered colonic diverticula. The appendix is n ormal. Small hiatal hernia present. PERITONEUM/RETROPERITONEUM: No evidence of pneumoperitoneum or free fluid. VASCULATURE: Moderate atherosclerotic calcifications are present throughout the abdominal aorta and i ts branches. No evidence of aortic aneurysm. MUSCULOSKELETAL: No acute osseous abnormalities LYMPH NODES: No gross evidence for lymphadenopathy. SOFT TISSUE/ABDOMINAL WALL: Unremarkable IMPRESSION: 1. No evidence for acute process to explain the patient's pain. Normal appendix. No obstructive urop athy. 2. Bilateral nonobstructing renal calculi. 3. Colonic diverticulosis. 4. Small hiatal hernia.
== END | disposition home or self-care (01) ==
LOC: RADCTMAIN 13:17
PROVIDERS: ATTEND Family Medicine
DX: N20.0 Calculus of kidney (principal); K57.30 Diverticulosis of large intestine without perforation or abscess without bleeding; K21.00 Gastro-esophageal reflux disease with esophagitis, without bleeding; K44.9 Diaphragmatic hernia without obstruction or gangrene
CPT/HCPCS: 74176

== ENCOUNTER → 2022-11-30 | Outpatient (CLI) | payer MEDICARE, OTHER ==
--- NOTE | 2022-12-03 09:20 | MM ---
Reason for Exam: Screening (asymptomatic). Last mammogram was performed 1 year(s) and 6 month(s) ago. Patient History: Menarche at age 11. Hysterectomy at age 39. Postmenopausal. Patient used Estrogen for 21 years. Patient used Hormonal Contraceptives for 2 years. 1989, Benign Excisional Biopsy on the left side. Maternal cousin had breast cancer. Risk Values: Nicole 5 year model risk: 1.5%. NCI Lifetime model risk: 3.7%. Prior Study Comparison: 05/28/2018 Bilateral Screening Mammogram, [facility]. 02/16/2020 Bilateral Screening Mammogram, [facility]. 05/25/2021 Bilateral Screening Mammogram, [facility]. Tissue Density: There are scattered fibroglandular densities. Findings: Analyzed By CAD. There is no suspicious group of microcalcifications or new suspicious mass in either breast. Benign-appearing calcifications within both breasts. Overall Assessment: Benign, BI-RAD 2 Management: Screening Mammogram of both breasts in 1 year. A clinical breast exam by your physician is recommended on an annual basis and results should be correlated with mammographic findings. Electronically signed and approved by: Ian Granger D.O.
== END | disposition home or self-care (01) ==
LOC: RADMAMWWP 14:38
PROVIDERS: ATTEND Family Medicine
DX: Z12.31 Encounter for screening mammogram for malignant neoplasm of breast (principal); Z78.0 Asymptomatic menopausal state; Z80.3 Family history of malignant neoplasm of breast
CPT/HCPCS: 77063; 77067

== ENCOUNTER → 2023-01-10 | Outpatient (CLI) | payer MEDICARE, OTHER ==
--- NOTE | 2023-01-10 09:57 | XR ---
EXAMINATION TYPE: XR shoulder complete RT DATE OF EXAM: 01/10/2023 COMPARISON: NONE HISTORY: Pain TECHNIQUE: AP, external rotation, and scapular Y view projections of the right shoulder are obtained. FINDINGS: There is no acute fracture/dislocation evident. Mild AC joint arthropathy with joint space narrowing and marginal spurring.. The overlying soft tissue appears unremarkable. IMPRESSION: 1. No acute fracture or dislocation. 2. Mild AC joint arthropathy.
--- NOTE | 2023-01-10 10:28 | XR ---
EXAMINATION TYPE: XR thoracic spine complete DATE OF EXAM: 01/10/2023 9:53 AM INDICATION: Patient age:Female; 72 years old; Reason for study: [id number] RT SHLD PAIN,THOR PAIN; YCH. COMPARISON: None TECHNIQUE: 3 views of the thoracic spine in frontal, lateral, and Schwimmer projections. FINDINGS: No evidence of acute fracture. No evidence of vertebral body height loss. Mild multilevel disc space narrowing with endplate sclerosis. There is normal alignment of the thoracic vertebral bodies. Athero sclerotic calcification of the aorta. IMPRESSION: 1. No acute osseous pathology. 2. Mild multilevel degenerative disc disease of the thoracic spine.
== END | disposition home or self-care (01) ==
LOC: RADXRYALE 09:28
PROVIDERS: ATTEND Family Medicine
DX: M19.011 Primary osteoarthritis, right shoulder (principal); M51.34 Other intervertebral disc degeneration, thoracic region
CPT/HCPCS: 72072

== ENCOUNTER → 2023-09-13 | Outpatient (CLI) | payer MEDICARE, OTHER ==
[2023-09-13 13:53] LABS: African American GFR (CKD) >90 (>60 ml/min/1.73 sqM); Blood Urea Nitrogen 14 mg/dL (7-17); Non-African American GFR(CKD) 88 (>60 ml/min/1.73 sqM)
--- NOTE | 2023-09-13 15:51 | CT ---
EXAMINATION TYPE: CT angio abdomen pelvis CT DLP: 826.1 mGycm, Automated exposure control for dose reduction was used. DATE OF EXAM: 09/13/2023 2:57 PM COMPARISON: 11/22/2022. CLINICAL INDICATION:Female, 73 years old with history of I73.9 PERIPHERAL VASCULAR DISEASE, UNSPECIFI ,M54.6; PHH, PERIPHERAL VASCULAR DISEASE, pain. looking for blockage TECHNIQUE: Multiple thin slice sub-millimeter images were obtained after administration of contrast. 3-D reconstructed images and maximum intensity projection images were obtained. CT angio abdomen pel vis CT Contrast: Contrast used:100 cc mL of Isovue 370 with IV Contrast, Oral contrast used: without Oral Contrast None FINDINGS: CTA Abdomen and pelvis: The abdominal aorta does not demonstrate aneurysmal dilatation. Atherosclero tic plaquing is identified within the abdominal aorta. The origins of the superior mesenteric artery , renal arteries, inferior mesenteric artery, and celiac axis are patent. The iliac vessels are norm al in morphology disc infrarenal abdominal aortic stent graft is present and appears patent. No evide nce for significant narrowing. Calcifications at the origin of the stent graft with at least 25-50% n arrowing series 6 image 85. Partially visualized is calcified plaque of the common femoral artery whi ch is nearly out of the [id number] series 6 image 192. LOWER CHEST: No evidence of focal consolidation, pneumothorax or pleural effusion. LIVER: Unremarkable GALLBLADDER AND BILE DUCTS: The gallbladder appears surgically absent. PANCREAS: Unremarkable. SPLEEN: Unremarkable. ADRENAL GLANDS: Unremarkable. KIDNEYS AND URETERS: No evidence of hydronephrosis or renal calculus. The ureters are unremarkable. PELVIS BLADDER: Unremarkable REPRODUCTIVE: Unremarkable. ABDOMEN & PELVIS STOMACH AND BOWEL: No evidence of bowel obstruction. Scattered colonic diverticula are present. PERITONEUM: No evidence of pneumoperitoneum or free fluid. VASCULATURE: No evidence of aortic aneurysm. MUSCULOSKELETAL: No acute osseous abnormalities LYMPH NODES: No gross evidence for lymphadenopathy. SOFT TISSUE/ABDOMINAL WALL: Fat-containing right inguinal hernia. IMPRESSION 1. No evidence of vascular occlusion. 2. Infrarenal abdominal aortic stent graft which appears patent. There may be mild 25-50 % narrowing at the superior portion. 3. Atherosclerotic disease involving abdominal aorta 4. Atherosclerosis of the common femoral artery and the inferior aspect of the [id number]. Possibl y of high-grade stenosis. Consider further evaluation.
== END | disposition home or self-care (01) ==
LOC: RADCTMAIN 13:09
PROVIDERS: ATTEND Family Medicine
DX: Z01.818 Encounter for other preprocedural examination (principal); I70.209 Unspecified atherosclerosis of native arteries of extremities, unspecified extremity; I70.0 Atherosclerosis of aorta; M54.6 Pain in thoracic spine; Z95.828 Presence of other vascular implants and grafts
CPT/HCPCS: 82565; 84520; 36415; 74174; Q9967

== ENCOUNTER 2023-10-25 10:30 | Day surgery (SDC) | payer MEDICARE, OTHER ==
[2023-10-23 10:22] VITALS: BMI 30.2
[2023-10-25] MEDS: EMPTY BAG 1 BAG with SODIUM CHLORIDE 0.9% 1,000 ML IV SCH (09:00)
[2023-10-25 09:29] LABS: Basophils # (A) 0.1 k/uL (0-0.2); Basophils % (A) 1 %; Eosinophils # (A) 0.6 k/uL (0-0.7); Eosinophils % (A) 9 %; HCT 41.8 % (34.0-46.0); HGB 13.7 gm/dL (11.4-16.0); Lymphocytes # (A) 1.5 k/uL (1.0-4.8); Lymphocytes % (A) 23 %; MCH 29.5 pg (25.0-35.0); MCHC 32.8 g/dL (31.0-37.0); MCV 90.2 fL (80.0-100.0); Mean Platelet Volume 9.7; Monocytes # (A) 0.3 k/uL (0-1.0); Monocytes % (A) 5 %; Neutrophils % (A) 61 %; Platelet Count 144 k/uL (150-450); RBC 4.64 m/uL (3.80-5.40); RDW 13.9 % (11.5-15.5); WBC 6.6 k/uL (3.8-10.6)
[2023-10-25 09:32] VITALS: RESP 16; TEMP 98.5
[~2023-10-25 10:30] MED LIST changes: -ALPRAZolam 0.25 MG TAB PO PRN; -ALPRAZolam 0.5 MG TAB PO PRN; -ASPIRIN 325 MG TAB PO ONE; -ATORVASTATIN 80 MG TAB PO ONE; +HEPARIN SODIUM 1,000 UN/ML (10ML VL) ONE; +LIDOCAINE 1% INJ 10MG/ML (20 ML MDV) ONE; -NITROGLYCERIN SL TABS 0.4 MG TAB SUBLINGUAL PRN; -SODIUM CHLORIDE 0.9% 1,000 ML in EMPTY BAG 1 BAG IV ONE; +VERAPAMIL 2.5 MG/ML 2 ML AMP ONE; +fentaNYL (PF) 50 MCG/ML 2 ML AMP ONE
[2023-10-25 10:36] LABS: African American GFR (CKD) >90 (>60 ml/min/1.73 sqM); Anion Gap 9 mmol/L; Blood Urea Nitrogen 18 mg/dL (7-17); Calcium 9.1 mg/dL (8.4-10.2); Carbon Dioxide 20 mmol/L (22-30); Chloride 110 mmol/L (98-107); Glucose 140 mg/dL (74-99); Non-African American GFR(CKD) 90 (>60 ml/min/1.73 sqM); Potassium 4.4 mmol/L (3.5-5.1); Sodium 139 mmol/L (137-145)
[2023-10-25] MEDS: MIDAZOLAM 2 MG/2 ML VIAL IVP ONE (10:46)
[2023-10-25] MEDS: fentaNYL (PF) 50 MCG/ML 2 ML AMP IVP ONE (10:46)
[2023-10-25] MEDS: LIDOCAINE 1% INJ 10MG/ML (20 ML MDV) SQ ONE (10:48)
[2023-10-25] MEDS: IOPAMIDOL-370 100ML BTL INJ ONE ×2 (11:05)
[2023-10-25] MEDS: IV FLUID CONTINUATION 1,000 ML IV ONE (11:06)
--- NOTE | 2023-10-25 11:11 | P.OP ---
Date of Procedure: 10/25/23 Description of Procedure: Preoperative diagnosis: Disabling thigh and right lower extremity claudication, aortic stent stenosis Postop diagnosis: Same, aortic stent stenosis greater than 60%, right common femoral artery stenosis greater than 80% Procedure: Aortogram with bilateral lower extremity runoffs via left radial artery access under ultrasound guidance Surgeon: Shin Anesthesia: Moderate sedation times 17 minutes Estimated blood loss: 2cc Complications: None Condition: Stable Findings: Aorta: Stent noted in the midportion of the aorta with greater than 60% stenosis. Iliacs: Bilateral common iliac, external iliac and internal iliac arteries are widely patent without any significant stenosis Femorals: Right common femoral artery with atherosclerotic plaque and calcific plaque with greater than 80% stenosis. Profundus femoris and superficial femoral artery are widely patent without any significant disease. Left common femoral, profundus femoris and superficial femoral artery are patent with 1 area of mild stenosis at the midportion of the SFA Popliteal: Widely patent bilaterally without any significant stenosis Tibials: Bilateral tibial peroneal trunk is widely patent with atherosclerotic disease throughout the anterior and posterior tibial arteries with two-vessel runoff to the ankle. Operative narrative: After written informed consent was obtained the patient all risks benefits competitions were described the patient is brought to the [facility] and laid in a supine position. The area of the left wrist was prepped and draped in the usual sterile fashion. Local anesthesia with moderate sedation was performed with continuous pulse ox monitoring and EKG monitoring. Utilizing ultrasound the radial artery was visualized and shown to be patent without any significant plaque. Utilizing a multipurpose needle under ultrasound guidance the artery was accessed. Guidewire was placed followed by 5 Hebrew sheath. 035 Glidewire was then placed into the aorta followed by pigtail catheter. Angiogram was then obtained of the aorta and then lower extremity runoffs were o btained. Once completed all guidewires, catheters and sheaths were removed and TR band was placed for hemostasis. Patient tolerated procedure well was sent to PACU for recovery. She will require right common femoral artery endarterectomy and patch angioplasty with aortic in-stent balloon angioplasty after medical clearance which we will discuss in full detail in the office in 1 to 2 weeks. Plan - Discharge Summary Discharge Rx Participant: Yes New Discharge Prescriptions: No Action Verapamil HCl [Verapamil ER] 180 mg PO AC-BRKFST Lansoprazole [Prevacid] 30 mg PO 1200 Citalopram Hydrobromide [CeleXA] 20 mg PO DAILY Ergocalciferol [Vitamin D2 (1250 Mcg = 54666 Iu)] 50,000 mcg PO TU Rosuvastatin Calcium [Crestor] 20 mg PO HS Multivit-Min/Iron/Folic/Lutein [Centrum Silver Women Tablet] 1 each PO DAILY Bifidobacterium Infantis [Align] 4 mg PO 1200 Aspirin [Adult Low Dose Aspirin EC] 81 mg PO DAILY Ezetimibe [Zetia] 10 mg PO DAILY Eye Gtts (Unknown Dose) 1 drop BOTH EYES DAILY Discharge Medication List Citalopram Hydrobromide [CeleXA] 20 mg PO DAILY 01/03/17 [History] Lansoprazole [Prevacid] 30 mg PO 1200 01/03/17 [History] Verapamil HCl [Verapamil ER] 180 mg PO -BRKFST 01/03/17 [History] Bifidobacterium Infantis [Align] 4 mg PO 1200 10/06/20 [History] Ergocalciferol [Vitamin D2 (1250 Mcg = 64836 Iu)] 50,000 mcg PO TU 10/06/20 [History] Multivit-Min/Iron/Folic/Lutein [Centrum Silver Women Tablet] 1 each PO DAILY 10/06/20 [History] Rosuvastatin Calcium [Crestor] 20 mg PO HS 10/06/20 [History] Ezetimibe [Zetia] 10 mg PO DAILY 12/30/20 [History] Aspirin [Adult Low Dose Aspirin EC] 81 mg PO DAILY 10/23/23 [History] Eye Gtts (Unknown Dose) 1 drop BOTH EYES DAILY 10/23/23 [History]
--- NOTE | 2023-10-25 12:09 | IR ---
EXAMINATION TYPE: IR angio abdominal w runoff DATE OF EXAM: 10/25/2023 COMPARISON: NONE HISTORY: Fluoroscopy time. Fluoroscopy was provided to the referring clinician.
[2023-10-25 13:07] VITALS: PULSE 75
[2023-10-25 14:18] VITALS: BP 134/63
== END 2023-10-25 14:00 | disposition home or self-care (01) ==
LOC: CATHCVL 10:30
PROVIDERS: ATTEND Surgery
DX: I73.9 Peripheral vascular disease, unspecified (principal); Z79.82 Long term (current) use of aspirin; F17.200 Nicotine dependence, unspecified, uncomplicated; Z88.1 Allergy status to other antibiotic agents; Z79.899 Other long term (current) drug therapy
CPT/HCPCS: 36200; 75625; 75716; 80048; 85025; 99152; C1769 ×3; C1894; J2250; J2001; J3010; Q9967

== ENCOUNTER 2023-12-20 09:48 | Inpatient (IN) | payer MEDICARE, OTHER ==
[~2023-12-20 09:48] MED LIST changes: +ALPRAZolam 0.25 MG TAB PO PRN; +ALPRAZolam 0.5 MG TAB PO PRN; -HEPARIN SODIUM 1,000 UN/ML (10ML VL) ONE; -LIDOCAINE 1% INJ 10MG/ML (20 ML MDV) ONE; -VERAPAMIL 2.5 MG/ML 2 ML AMP ONE; +ZOLPIDEM 5 MG TAB PO PRN; +ceFAZolin 1 GM in SODIUM CHLORIDE 0.9% 250 ML IRRIGATION PRN; -fentaNYL (PF) 50 MCG/ML 2 ML AMP ONE
[2023-12-20] MEDS: SODIUM CHLORIDE 0.9% 1,000 ML IV ONE (10:07)
[2023-12-20 10:13] LABS: Glucose,Whole Blood 120 mg/dL (70-110)
[2023-12-20 10:34] LABS: Basophils # (A) 0.1 k/uL (0-0.2); Basophils % (A) 1 %; Eosinophils # (A) 0.4 k/uL (0-0.7); Eosinophils % (A) 7 %; HCT 40.9 % (34.0-46.0); HGB 13.3 gm/dL (11.4-16.0); Lymphocytes # (A) 1.5 k/uL (1.0-4.8); Lymphocytes % (A) 28 %; MCH 29.7 pg (25.0-35.0); MCHC 32.5 g/dL (31.0-37.0); MCV 91.3 fL (80.0-100.0); Mean Platelet Volume 9.4; Monocytes # (A) 0.3 k/uL (0-1.0); Monocytes % (A) 6 %; Neutrophils % (A) 56 %; Platelet Count 145 k/uL (150-450); RBC 4.48 m/uL (3.80-5.40); RDW 13.6 % (11.5-15.5); WBC 5.4 k/uL (3.8-10.6)
--- NOTE | 2023-12-20 10:40 | P.ANPRN ---
Procedure Note - Anesthesia - Invasive Line Left Arterial Line Time Out Performed: Yes (1014) Date of Procedure: 12/20/23 Time of Procedure: 10:15 Location of Patient: PreOp Preparation: Sterile Prep, Sterile Dressing Arterial Line Location: Radial (left) Ultrasound Used: No Purpose - Visualization and Identification of Vasculature: No Needle Guage: 20g Image Stored and Saved: No Narrative: Invasive line placement per sterile protocol utilized. pulsitile flow. bled and flushed
[2023-12-20 10:56] LABS: African American GFR (CKD) >90 (>60 ml/min/1.73 sqM); Anion Gap 3 mmol/L; Blood Urea Nitrogen 17 mg/dL (7-17); Calcium 8.9 mg/dL (8.4-10.2); Carbon Dioxide 27 mmol/L (22-30); Chloride 110 mmol/L (98-107); Glucose 113 mg/dL (74-99); Non-African American GFR(CKD) 89 (>60 ml/min/1.73 sqM); Potassium 4.2 mmol/L (3.5-5.1); Sodium 140 mmol/L (137-145)
[2023-12-20] MEDS ORDERED: NEOSTIGMINE 1 MG/ML 10 ML VIAL ONE (11:42)
[2023-12-20] MEDS ORDERED: ROCURONIUM 10 MG/ML (5 ML VIAL) IV ONE (11:42)
[2023-12-20] MEDS ORDERED: GLYCOPYRROLATE 0.2 MG/ML 2 ML VIAL ONE (11:42)
[2023-12-20] MEDS ORDERED: LIDOCAINE 1% INJ 10MG/ML (20 ML MDV) ONE (11:42)
[2023-12-20] MEDS ORDERED: hydrALAZINE HCL 20 MG/ML 1 ML VIAL ONE ×2 (11:42→14:14)
[2023-12-20] MEDS ORDERED: PROPOFOL 10 MG/ML 20 ML VIAL IV ONE (11:42)
[2023-12-20] MEDS ORDERED: fentaNYL (PF) 50 MCG/ML 2 ML AMP ONE (11:42)
[2023-12-20] MEDS ORDERED: SUCCINYLCHOLINE CHLORIDE 200 MG/10 ML VIAL IV ONE (11:42)
[2023-12-20] MEDS ORDERED: MIDAZOLAM 2 MG/2 ML VIAL ONE (11:42)
[2023-12-20] MEDS ORDERED: HEPARIN SODIUM,PORCINE 10,000 UNIT/ML 1 ML VIAL ONE (11:42)
[2023-12-20] MEDS: THROMBIN (BOVINE) 5,000 UNIT VIAL MISCELLANE ONE (12:48)
[2023-12-20] MEDS: ceFAZolin 2 GM in SODIUM CHLORIDE 0.9% 500 ML 500 ML IRRIGATION ONE (13:29)
[2023-12-20] MEDS: HEPARIN SODIUM (1,000 UNIT/ML) 2,000 UNIT in SODIUM CHLORIDE 0.9% 1,000 ML IRRIGATION ONE (13:29)
[2023-12-20] MEDS: SODIUM CHLORIDE 0.9% 500 ML 500 ML IV ONE (14:28)
[2023-12-20] MEDS ORDERED: MORPHINE SULFATE 2 MG/ML SYRINGE IVP PRN (14:52)
--- NOTE | 2023-12-20 14:52 | P.OP ---
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 She had previous aortic stent placed [address] and on [address] scan of the abdomen pelvis with runoff it was noted to be stenotic roughly 50 to 60% as well as dense calcification noted in the right common femoral artery with greater than 80% stenosis. She presents today for femoral endarterectomy, patch angioplasty and possible aortic stent balloon angioplasty. Description of Procedure: Operative narrative: After written and informed consent was obtained from the patient all risks benefits and complications were described the patient is brought to the operative suite and laid in a supine position. The area of the abdomen, right lower extremity was prepped and draped in usual sterile fashion after appropriate anesthetic was performed per the anesthesiologist. A timeout was performed in normal fashion. Antibiotics were administered prior to incision. A oblique incision was created at the right groin and dissection was carried down to the common femoral artery. The common femoral, superficial femoral and profundus femoris arteries were dissected free in a circumferential manner and controlled with vessel loops. Patient was administered heparin and followed with serial ACT's and redosed to maintain above 200. Proximal and distal control was then clamped and arteriotomy was created with 11 blade scalpel and extended with Worley scissors. Dense calcification was encountered and endarterectomy was then performed through the common femoral artery extending up to the proximal aspect and distally to the superficial femoral and profunda femoris arteries. Plaque was then removed and eversion endarterectomy was performed at the profundus. All free debris was removed. Patch angioplasty was then performed with bovine pericardial patch and 6-0 Prolene suture in a running fashion. Once completed the control was released revealing good pulsatile blood flow within the patch as well as in the superficial femoral artery and profundus femoris arteries. Attention was then placed to retrograde access with a micro access needle and upsized to a 6 Chilean sheath in normal fashion. Retrograde angiogram was then obtained of the iliac and aorta demonstrating stenosis within the distal aorta within the previously placed stent. Stenosis was roughly 50% and therefore decision was made for balloon angioplasty. 035 Glidewire advantage was then placed across the lesion and a 10 x 40 mm EverCross balloon was placed and balloon angioplasty was performed. Final angiogram was obtained demonstrating improved flow and improved stenosis with residual of roughly 10%. Iliofemoral angiogram demonstrated patent patch and good brisk flow through the profundus femoris and superficial femoral artery. The sheath was then removed along with the wire and balloon and patch automate was closed with 6-0 Prolene suture. Once completed all control was released the area was then copiously irrigated with antibiotic solution. Hemostasis was assured and incision was closed in a multilayer fashion. The skin was cleansed and dressed with a Prevena. Patient tolerated the procedure well and had a palpable DP pulse bilaterally at the conclusion of the procedure.
[2023-12-20] MEDS: ONDANSETRON 4 MG/2 ML VIAL IVP ONE (15:50)
--- NOTE | 2023-12-20 15:58 | IR ---
EXAMINATION TYPE: IR aircraft captain aorta Intraoperative/procedural fluoroscopic services were provided. Total f luoroscopy time is not reported seconds with a total of not reported submitted images to PACS. Plea se see the operative/procedural note for further details. DAP: not reported mGym2 Gycm2 uGym2 cGycm2
[2023-12-20 17:11] LABS: Glucose,Whole Blood 113 mg/dL (70-110)
[2023-12-20] MEDS ORDERED: DEXTROSE 50% SYRINGE 50 ML IVP PRN ×2 (17:35)
--- NOTE | 2023-12-20 17:44 | P.CONS ---
History of Present Illness - Reason for Consult Consult date: 12/20/23 medical management - History of Present Illness Patient is a 73-year-old female with a past medical history of peripheral v ascular disease, depression, diabetes mellitus, GERD, hyperlipidemia, hypertension who presents to the hospital for vascular procedure. Patient had right common femoral artery endarterectomy and patch angioplasty and iliofemoral and aortic angiogram and transluminal balloon angioplasty of the aortic stent. Patient admitted to the vascular surgery service. Patient currently denying any acute complaints. Family is at bedside. ROS: 10 ROS reviewed and are negative except as noted in HPI Physical exam General: [Alert and oriented, well nourished, no acute distress]. Eye: [PERRL, EOMI, normal conjunctiva]. HENT: [Normocephalic, clear tympanic membranes, normal hearing, moist oral mucosa, no scleral icterus, no sinus tenderness]. Neck: [Supple, non-tender, no carotid bruits, no JVD, no lymphadenopathy]. Lungs: [Clear to auscultation and percussion, non-labored respiration]. Heart: [Normal rate, regular rhythm, no murmur, gallop or edema]. Abdomen: [Soft, non-tender, non-distended, normal bowel sounds, no masses]. Musculoskeletal: [Normal range of motion and strength, no tenderness or swelling]. Neurologic: [Awake, alert, and oriented X3, CN II-XII intact]. Psychiatric: [Cooperative, appropriate mood and affect]. Assessment and plan Peripheral vascular disease Status post right common femoral artery endarterectomy Status post aortic angiogram and transluminal balloon angioplasty of the aortic stent Will continue with aspirin Plavix and statin and calcium channel dione Management as per your vascular surgery service Diabetes mellitus Patient states that this is diet controlled Sliding scale insulin Depression Continue escitalopram Hyperlipidemia Continue statin Hypertension Continue home BP meds Sleep apnea Patient will use her own CPAP from home DVT prophylaxis: Will defer to primary team Past Medical History Past Medical History: Coronary Artery Disease (CAD), Diabetes Mellitus, GERD/Reflux, Hearing Disorder / Deafness, Hyperlipidemia, Hypertension, Liver Disease, Skin Disorder, Sleep Apnea/CPAP/BIPAP, Vascular Disorder Additional Past Medical History / Comment(s): PVD, varicose veins, YESIKA with cpap use, past hepatitis C/successful treatment, restless leg syndrome, perforation of tympanic membrane, bilateral SQUAXIN, diet control diabetes, hx. of occasional "rapid heart rate" with SOB, RBBB, varicose veins, hx ulcers, hiatal hernia, IBS, dry skin, vitamin D deficiency. History of Any Multi-Drug Resistant Organisms: None Reported Past Surgical History: Breast Surgery, Cholecystectomy, Ear Surgery, Hysterectomy, Orthopedic Surgery, Tonsillectomy Additional Past Surgical History / Comment(s): Lt. breast biopsy, liver biopsy, aortic stent placement, uvula removed, aortagrams, right and left eardrum graft, colonoscopy/egd, joey CATARACT , joey knee arthroscopy Past Anesthesia/Blood Transfusion Reactions: No Reported Reaction Additional Past Anesthesia/Blood Transfusion Reaction / Comm: Slow to wake. Smoking Status: Current every day smoker - Past Family History Brother(s) Family Medical History: Cancer Sister(s) Family Medical History: Cancer Additional Family Medical History / Comment(s): 3 sisters Medications and Allergies Home Medications Medication Instructions Recorded Confirmed Type Citalopram Hydrobromide [CeleXA] 20 mg PO 119901/03/17 12/17/23 History Lansoprazole [Prevacid] 30 mg PO 119901/03/17 12/17/23 History Verapamil HCl [Verapamil ER] 180 mg PO 119901/03/17 12/17/23 History Bifidobacterium Infantis [Align] 4 mg PO 119910/06/20 12/17/23 History Ergocalciferol [Vitamin D2 (1250 50,000 mcg PO TU 10/06/20 12/17/23 History Mcg = 09659 Iu)] Multivit-Min/Iron/Folic/Lutein 1 each PO 1200 10/06/20 12/17/23 History [Centrum Silver Women Tablet] Rosuvastatin Calcium [Crestor] 20 mg PO HS 10/06/20 12/17/23 History Ezetimibe [Zetia] 10 mg PO 119912/30/20 12/17/23 History Aspirin [Adult Low Dose Aspirin EC] 81 mg PO 119910/23/23 12/17/23 History Cequa 1 drop BOTH EYES BID 12/17/23 12/17/23 History Allergies Allergy/AdvReac Type Severity Reaction Status Date / Time cephalexin monohydrate Allergy Intermediate Rash/Hives Verified 12/20/23 10:02 [From Keflex] erythromycin base AdvReac Nausea & Verified 12/20/23 10:02 [From E-Mycin] Vomiting Physical Exam Osteopathic Statement: *. No significant issues noted on an osteopathic structural exam other than those noted in the History and Physical/Consult. Vitals: Vital Signs Temp Pulse Pulse Resp BP BP Pulse Ox 12/20/23 17:00 87 16 129/60 97 12/20/23 16:30 90 16 140/64 97 12/20/23 16:00 93 16 141/64 97 12/20/23 15:43 93 16 132/60 97 12/20/23 15:28 92 16 129/61 97 12/20/23 15:13 89 16 129/60 96 12/20/23 14:58 88 16 148/75 125/60 96 12/20/23 14:43 83 16 143/48 95 12/20/23 10:17 98.3 F 78 16 169/74 169/72 97 Intake and Output 12/20/23 12/20/23 12/20/23 06:59 14:59 22:59 Intake Total 1302 Output Total 625 Balance 677 Intake: IV 1302 Output: Urine 600 Estimated Blood Loss 25 Other: Weight 72.4 kg Results CBC & Chem 7: 12/20/23 10:05 12/20/23 10:05 Labs: Abnormal Lab Results - Last 24 Hours (Table) 12/20/23 12/20/23 12/20/23 Range/Units 10:05 10:05 10:10 Plt Count 145 L (150-450) k/uL Chloride 110 H (98-107) mmol/L Glucose 113 H (74-99) mg/dL POC Glucose (mg/dL) 120 H (70-110) mg/dL 12/20/23 Range/Units 17:08 Plt Count (150-450) k/uL Chloride (98-107) mmol/L Glucose (74-99) mg/dL POC Glucose (mg/dL) 113 H (70-110) mg/dL
[2023-12-20] MEDS: SODIUM CHLORIDE 0.9% 1,000 ML in EMPTY BAG 1 BAG IV ONE (17:50)
[2023-12-20] MEDS: SODIUM CHLORIDE 0.9% 1,000 ML IV SCH (17:56)
[2023-12-20] MEDS: PANTOPRAZOLE 40 MG TABLET PO SCH (17:57)
[2023-12-20] MEDS: ARTIFICIAL TEARS-HYPROMELLOSE DROPS 15 ML BTL BOTH EYES PRN (18:45)
[2023-12-20 20:07] LABS: Glucose,Whole Blood 124 mg/dL (70-110)
[2023-12-20] MEDS: ATORVASTATIN 40 MG TAB PO SCH (20:49)
[2023-12-20] MEDS: INSULIN ASPART (NovoLOG) 100 UNIT/ML VIAL SQ SCH (21:05)
[2023-12-20] MEDS: [UNRECOGNIZED DRUG - OTHER] BOTH EYES SCH (21:35)
[2023-12-21 05:30] VITALS: RESP 16
[2023-12-21 06:13] LABS: Glucose,Whole Blood 129 mg/dL (70-110)
[2023-12-21 08:46] VITALS: BP 143/55; PULSE 91; TEMP 98.3
[2023-12-21] MEDS: CLOPIDOGREL 75 MG TAB PO SCH (08:57)
--- NOTE | 2023-12-21 09:35 | P.DS ---
Providers Date of admission: 12/20/23 09:48 Attending physician: Prince Melissa DO Consults: 12/20/23 05:59 Consult to Anesthesia Routine Consulting Provider: Anesthesia,Services Consult Reason/Comments: General anesthesia for Aortic Stent procedure 12/20/23 14:55 Consult Physician Routine Consulting Provider: Jamar Dao Consult Reason/Comments: medical management Do you want consulting provider notified?: Yes [facility] Course: Patient is a 73-year-old female who was admitted for surgical intervention on 12/20/2023. She underwent a right femoral endarterectomy with patch angioplasty as well as aortic angioplasty. She has been doing well. She is feeling much better now that she is able to sit out of bed, she has some mild soreness in her right groin. On physical examination she is in no acute distress sitting comfortably in a chair. Heart appears regular, her lungs are clear, her abdomen is soft. Her right groin incision is covered. Dressing is intact. Area surrounding is soft. She has a palpable dorsalis pedis pulse and a palpable posterior tibial. At this point she appears to be in stable condition for discharge home. Disch arge instructions are given. Medication is sent to the pharmacy. Patient Condition at Discharge: Good Plan - Discharge Summary Discharge Rx Participant: No New Discharge Prescriptions: New Clopidogrel [Plavix] 75 mg PO DAILY #30 tablet No Action Verapamil HCl [Verapamil ER] 180 mg PO 1200 Lansoprazole [Prevacid] 30 mg PO 1200 Citalopram Hydrobromide [CeleXA] 20 mg PO 1200 Ergocalciferol [Vitamin D2 (1250 Mcg = 46689 Iu)] 50,000 mcg PO TU Rosuvastatin Calcium [Crestor] 20 mg PO HS Multivit-Min/Iron/Folic/Lutein [Centrum Silver Women Tablet] 1 each PO 1200 Bifidobacterium Infantis [Align] 4 mg PO 1200 Aspirin [Adult Low Dose Aspirin EC] 81 mg PO 1200 Cequa 1 drop BOTH EYES BID Ezetimibe [Zetia] 10 mg PO 1200 Discharge Medication List Citalopram Hydrobromide [CeleXA] 20 mg PO 1200 01/03/17 [History] Lansoprazole [Prevacid] 30 mg PO 1200 01/03/17 [History] Verapamil HCl [Verapamil ER] 180 mg PO 1200 06/01/17 [History] Bifidobacterium Infantis [Align] 4 mg PO 1200 10/06/20 [History] Ergocalciferol [Vitamin D2 (1250 Mcg = 07854 Iu)] 50,000 mcg PO TU 10/06/20 [History] Multivit-Min/Iron/Folic/Lutein [Centrum Silver Women Tablet] 1 each PO 1200 10/06/20 [History] Rosuvastatin Calcium [Crestor] 20 mg PO HS 10/06/20 [History] Ezetimibe [Zetia] 10 mg PO 1200 12/30/20 [History] Aspirin [Adult Low Dose Aspirin EC] 81 mg PO 1200 10/23/23 [History] Cequa 1 drop BOTH EYES BID 12/17/23 [History] Clopidogrel [Plavix] 75 mg PO DAILY #30 tablet 12/21/23 [Rx] Follow up Appointment(s)/Referral(s): Prince Melissa DO [STAFF PHYSICIAN] - 1 Week (FOLLOW UP APPT ON 12/30 @ 11:15) Activity/Diet/Wound Care/Special Instructions: Resume regular diet. Resume home medications. May take nidv-mol-qdrtiax Tylenol or ibuprofen for pain control. Maintain wound VAC dressing in place for 7 days then may discard. No showering while dressing in place. May sponge bathe. No driving until seen in the office by Dr. Melissa. May use stairs. No heavy lifting Discharge Disposition: HOME SELF-CARE
[2023-12-21] MEDS ORDERED: CITALOPRAM HYDROBROMIDE 20 MG TAB PO SCH (12:00)
[2023-12-21] MEDS ORDERED: EZETIMIBE 10 MG TAB PO SCH (12:00)
[2023-12-21] MEDS ORDERED: VERAPAMIL SR 180 MG TABLET.ER PO SCH (12:00)
[2023-12-21] MEDS ORDERED: ASPIRIN 81 MG PO SCH (12:00)
== END 2023-12-21 11:00 | disposition home or self-care (01) | DRG 254 ==
LOC: 2ORMAIN 09:48 → 3SCARD 17:00
PROVIDERS: ADMIT Surgery; ATTEND Surgery
PROC: 027X3ZZ Dilation of Thoracic Aorta, Ascending/Arch, Percutaneous Approach (ICD-10-PCS; 2023-12-20)
PROC: B3101ZZ Fluoroscopy of Thoracic Aorta using Low Osmolar Contrast (ICD-10-PCS; 2023-12-20)
PROC: B41G1ZZ Fluoroscopy of Left Lower Extremity Arteries using Low Osmolar Contrast (ICD-10-PCS; 2023-12-20)
PROC: 04CK0ZZ Extirpation of Matter from Right Femoral Artery, Open Approach (ICD-10-PCS; principal; 2023-12-20 11:30)
PROC: 04UK0JZ Supplement Right Femoral Artery with Synthetic Substitute, Open Approach (ICD-10-PCS; 2023-12-20 11:30)
DX: E11.51 Type 2 diabetes mellitus with diabetic peripheral angiopathy without gangrene (principal); E78.5 Hyperlipidemia, unspecified; F17.210 Nicotine dependence, cigarettes, uncomplicated; F32.A Depression, unspecified; G47.30 Sleep apnea, unspecified; G25.81 Restless legs syndrome; I25.10 Atherosclerotic heart disease of native coronary artery without angina pectoris; K21.9 Gastro-esophageal reflux disease without esophagitis; G47.33 Obstructive sleep apnea (adult) (pediatric); I83.90 Asymptomatic varicose veins of unspecified lower extremity; I45.10 Unspecified right bundle-branch block; H91.90 Unspecified hearing loss, unspecified ear; I10 Essential (primary) hypertension; Z79.82 Long term (current) use of aspirin; Z86.19 Personal history of other infectious and parasitic diseases; Z90.710 Acquired absence of both cervix and uterus
CPT/HCPCS: 35371; 37246; 80048; 85025; 86850; 86900; 86901; 94760

== ENCOUNTER → 2024-01-23 | Outpatient (CLI) | payer MEDICARE, OTHER ==
--- NOTE | 2024-01-27 07:49 | MM ---
Reason for Exam: Screening (asymptomatic). Last mammogram was performed 1 year(s) and 2 month(s) ago. Patient History: Menarche at age 11. Patient has no children. Hysterectomy at age 39. Postmenopausal. Patient used Estrogen for 21 years. Patient used Hormonal Contraceptives for 2 years. 1989, Benign Excisional Biopsy on the left side. Maternal cousin had breast cancer. Risk Values: Nicole 5 year model risk: 2.3%. NCI Lifetime model risk: 5.3%. Prior Study Comparison: 02/16/2020 Bilateral Screening Mammogram, [facility]. 05/25/2021 Bilateral Screening Mammogram, [facility]. 11/30/2022 Bilateral MG 3D screening mammo w/cad, [facility]. Tissue Density: There are scattered areas of fibroglandular density. Findings: Analyzed By CAD. There is no suspicious group of microcalcifications or new suspicious mass in either breast. Overall Assessment: Negative, BI-RAD 1 Management: Screening Mammogram of both breasts in 1 year. . Patient should continue monthly self-breast exams. A clinical breast exam by your physician is recommended on an annual basis. This exam should not preclude additional follow-up of suspicious palpable abnormalities. Note on Nicole scores and lifetime risk: 1. A Nicole score greater than 3% is considered moderate risk. If this is the case, consider specialist referral to assess eligibility for a risk reducing agent. 2. If overall lifetime risk for the development of breast cancer is 20% or higher, the patient may qualify for future screening with alternating mammogram and breast MRI. Electronically signed and approved by: Roly Espitia M.D. Radiologis
== END | disposition home or self-care (01) ==
LOC: RADMAMWWP 09:56
PROVIDERS: ATTEND Family Medicine
DX: Z12.31 Encounter for screening mammogram for malignant neoplasm of breast (principal); Z78.0 Asymptomatic menopausal state; Z80.3 Family history of malignant neoplasm of breast
CPT/HCPCS: 77063; 77067

== ENCOUNTER → 2024-07-15 | Outpatient (CLI) | payer MEDICARE, OTHER ==
[2024-07-15 10:46] LABS: African American GFR (CKD) 89 (>60 ml/min/1.73 sqM); Blood Urea Nitrogen 16 mg/dL (7-17); Non-African American GFR(CKD) 77 (>60 ml/min/1.73 sqM)
--- NOTE | 2024-07-15 12:04 | CT ---
EXAMINATION TYPE: CT angio lower extremity RT CT DLP: 1703.6 mGycm, Automated exposure control for dose reduction was used. DATE OF EXAM: 07/15/2024 11:53 AM COMPARISON:CTA abdomen and pelvis 09/13/2023. . CLINICAL INDICATION:Female, 74 years old with history of R22.41 MASS LUMP; Swelling in groin. Hx of r ight femoral artery graft TECHNIQUE: Multiple thin slice sub-millimeter images were obtained through the right lower extremity before and after administration of contrast. Patient was given Isovue 370, 125 cc intravenously. 3- D reconstructed images and maximum intensity projection images were obtained of the right lower extre mity arterial vasculature. FINDINGS: CTA Lower extremities: Right: Atherosclerotic calcification of the visualized portion of the patent right common iliac arter y. Mild atherosclerotic calcification of the right patent internal and external arteries. The common femoral and superficial femoral arteries are patent without significant stenosis. The deep right femo ral artery is patent. The popliteal artery is patent. Anterior and posterior tibial arteries as well as the peroneal artery are patent. Anterior and posterior tibial arteries cross the ankle. No evidenc e for pseudoaneurysm. Postsurgical changes within the right inguinal region with scarring demonstrate d. Benign lymph node identified within the right inguinal region measuring 1 cm short axis. Pelvis: The appendix is within normal limits. No evidence for bowel obstruction. The visualized porti on of the urinary bladder is unremarkable. The uterus is surgically absent versus atrophic. Pelvic ph leboliths. Few scattered diverticula visualized sigmoid colon without surrounding inflammatory change s to suggest diverticulitis. No right inguinal hernia. IMPRESSION 1. No acute process. 2. Minimal atherosclerotic disease of the right lower extremity without evidence for occlusion or ps eudoaneurysm. 3. Benign nonenlarged lymph node within the right inguinal region. No organized fluid collections. [facility], , 07/15/2024 12:01 PM
== END | disposition home or self-care (01) ==
LOC: RADCTMAIN 09:55
PROVIDERS: ATTEND Surgery
DX: I70.201 Unspecified atherosclerosis of native arteries of extremities, right leg (principal); R22.41 Localized swelling, mass and lump, right lower limb
CPT/HCPCS: 82565; 84520; 36415; 73706; Q9967

== ENCOUNTER → 2024-12-07 | Outpatient (CLI) | payer MEDICARE, OTHER ==
--- NOTE | 2024-12-07 12:29 | XR ---
EXAMINATION TYPE: XR wrist complete RT DATE OF EXAM: 12/07/2024 12:11 PM INDICATION: Patient age:Female; 74 years old; Reason for study: [id number] RT WRIST PAIN; YCH. pain COMPARISON: None TECHNIQUE: 4 views of the right wrist. Frontal, navicular, lateral, and oblique. FINDINGS: No acute osseous pathology, joint dislocation, or joint effusion. No evidence of any soft tissue swelling is seen. IMPRESSION: No acute osseous pathology. [facility], , 12/07/2024 12:27 PM
== END | disposition home or self-care (01) ==
LOC: RADXRYALE 11:45
PROVIDERS: ATTEND Family Medicine
DX: M25.531 Pain in right wrist (principal); M65.4 Radial styloid tenosynovitis [de Quervain]

== ENCOUNTER → 2025-01-25 | Outpatient (CLI) | payer MEDICARE, OTHER ==
--- NOTE | 2025-01-25 13:37 | MM ---
Reason for Exam: Screening (asymptomatic). Last screening mammogram was performed 12 month(s) ago. Patient History: Menarche at age 11. Patient has no children. Hysterectomy at age 39. Postmenopausal. Patient used Estrogen for 21 years. Patient used Hormonal Contraceptives for 2 years. 1989, Benign Excisional Biopsy on the left side. Maternal cousin had breast cancer. Risk Values: Nicole 5 year model risk: 2.3%. NCI Lifetime model risk: 5.0%. Prior Study Comparison: 05/25/2021 Bilateral Screening Mammogram, [facility]. 11/30/2022 Bilateral MG 3D screening mammo w/cad, [facility]. 01/23/2024 Bilateral MG 3D screening mammo w/cad, [facility]. Tissue Density: The breasts are almost entirely fatty. Findings: Analyzed By CAD. Right breast: There is no suspicious group of microcalcifications or new suspicious mass. Left breast: There is no suspicious group of microcalcifications or new suspicious mass. Overall Assessment: Negative, BI-RAD 1 Management: Screening Mammogram of both breasts in [address] [facility] will attempt to contact patient to return for supplemental views and ultrasound if indicated. Patient should continue monthly self-breast exams. A clinical breast exam by your physician is recommended on an annual basis. This exam should not preclude additional follow-up of suspicious palpable abnormalities. Note on Nicole scores and lifetime risk: 1. A Nicole score greater than 3% is considered moderate risk. If this is the case, consider specialist referral to assess eligibility for a risk reducing agent. 2. If overall lifetime risk for the development of breast cancer is 20% or higher, the patient may qualify for future screening with alternating mammogram and breast MRI. [facility], , 01/25/2025 1:35 PM. Electronically signed and approved by: Geovanni Ray DO
--- NOTE | 2025-01-26 13:27 | BD ---
EXAMINATION TYPE: Axial Bone Density DATE OF EXAM: 01/25/2025 CLINICAL HISTORY: 74 years old Female. ICD-10 CODE: M85.80 DISORDER OF BONE , Additional History: Height: 5 ft Weight: 159 FRAX RISK QUESTIONS: Alcohol (3 or more units per day): no Family History (Parent hip fracture): no Glucocorticoids (More than 3mos): no (Ex: prednisone, prednisolone, methylprednisolone, dexamethasone, and hydrocortisone). History of Fracture in Adulthood: yes Secondary Osteoporosis: 1. Type 1 Diabetes: type 2 2. Hyperthyroidism: no 3. Menopause before 45: yes 4. Malnutrition: no 5. Chronic liver disease: prev hep c Rheumatoid Arthritis: no Current Tobacco Use: yes RISK FACTORS HISTORY OF: Surgery to Spine/Hip(right/left)/Wrist (right/left): no MEDICATIONS: Thyroid Medications: none Osteoporosis Medications: none EXAM MEASUREMENTS: Bone mineral densitometry was performed using the [employer] System. Bone mineral density as measured about the Lumbar spine is: ----- L1-L4(G/cm2): 1.020 T Score Values are as follows: ----- L1: -1.3 ----- L2: -1.1 ----- L3: -0.8 ----- L4: -2.2 ----- L1-L4: -1.3 Z Score Values are as follows: ----- L1: 0.2 ----- L2: 0.5 ----- L3: 0.7 ----- L4: -0.7 ----- L1-L4: 0.2 Bone mineral density has: decreased -6.3 % since study of: 2018 Bone mineral density about the R hip (g/cm2): 0.675 Bone mineral density about the L hip (g/cm2): 0.754 T Score values are as follows: -----R Neck: -2.6 -----L Neck: -2.0 -----R Total: -1.8 -----L Total: -1.2 Z Score values are as follows: -----R Neck: -0.8 -----L Neck: -0.3 -----R Total: -0.2 -----L Total: 0.4 Bone mineral density has: decreased -9.8 % since study of: 2018 FRAX%s: The graph provided illustrates a 25.4 % chance for a major osteoporotic fx and a 8.0 % chance for the hips probability for fx in 10 years time. IMPRESSION: Osteoporosis (T Score less than -2.5). There is increased fracture risk and therapy is usually indicated based on age. Re-Screen 1-2 years. NOTE: T-SCORE=SD OF THE YOUNG ADULT MEAN. [facility], , 01/26/2025 1:25 PM
== END | disposition home or self-care (01) ==
LOC: RADMAMWWP 13:09
PROVIDERS: ATTEND Family Medicine
DX: Z12.31 Encounter for screening mammogram for malignant neoplasm of breast (principal); R92.313 Mammographic fatty tissue density, bilateral breasts; M81.0 Age-related osteoporosis without current pathological fracture; M85.89 Other specified disorders of bone density and structure, multiple sites; Z92.0 Personal history of contraception; Z78.0 Asymptomatic menopausal state; Z80.3 Family history of malignant neoplasm of breast
CPT/HCPCS: 77063; 77067; 77080